=== PATIENT | female | born 1995 | race Hispanic/Latino ===

== ENCOUNTER 2025-01-18 05:55 | Emergency (ER) | payer OTHER, SELFPAY ==
[2025-01-18 05:56] VITALS: BP 123/70; PULSE 87; RESP 19; TEMP 37; O2SAT 100; BMI 21.6
--- NOTE | 2025-01-18 06:15 | EDS_ITS ---
HPI History of Present Illness HPI Narrative: Patient presents with a laceration to her left index finger that occurred today while she was at work. Patient states she cut it on a saw. Patient is right- hand dominant. Patient denies any paresthesias or weakness. Patient states her pain is worse with touching it. Patient states nothing seems to help with her pain. Patient is unsure of her last tetanus. Patient denies any other injuries. Patient was wearing 2 gloves when this occurred. Chief Complaint: Laceration Informant: patient Limited: language barrier (healthcare interpreter iPad was used.) Occured/Mechanism Comment: Cut with miter saw Onset/Context/Timing Onset: Today Context: Sudden Onset Timing: Continuous Location: Left index finger Worsened by: Palpation Relieved by: Nothing Associated Symptoms Associated Symptoms: Negative for Parasthesia or Weakness Narrative Tetanus Immunization: Unknown PFSH PFSH Medical History no medical history no medical history Home Medications ?Medication ?Instructions ?Recorded ?Last Taken ?Type NK 01/18/25 Unknown History Allergy/AdvReac Type Severity Reaction Status Date / Time No Known Allergies Allergy Verified 01/18/25 06:18 Surgical History no surgical history no surgical history Social History Smoking Status: Never smoker ROS ROS ED Constitutional Constitutional ED: Denies chills or fever(s) Eyes Eyes: Denies blurry vision or change in vision ENT ENT ED: Denies rhinorrhea or sore throat Cardiovascular Cardiovascular: Denies chest pain or palpitations Respiratory/Chest Respiratory/Chest: Denies cough or dyspnea Gastrointestinal Gastrointestinal: Denies nausea or vomiting Genitourinary Genitourinary ED: Denies dysuria or hematuria Musculoskeletal Musculoskeletal: Denies back pain or neck pain Integumentary Denies abscess or rash Neurologic Neurologic: Denies headache(s) or weakness Allergic/Immunologic Allergic/Immunologic ED: Denies mouth swelling or urticaria EXAM Physical Exam Const Vital Signs: 01/18/25 05:56 Temperature 98.6 F Temperature Source Oral Pulse Rate 87 Respiratory Rate 19 H Blood Pressure 123/70 H Blood Pressure Mean 87 Pulse Ox 100 Oxygen Delivery Method Room Air Positive well nourished and well developed General Appearance ED: well developed and NAD HEENT Reports moist mucous membranes Neck full ROM Extremity Extremity Narrative: There is a 3 cm full-thickness linear laceration over the base of the proximal phalanx of the left index finger. Patient is able to flex and extend the DIP and PIP joints. There is a deformity of the proximal phalanx of the left index finger. Capillary refill was less than 2 seconds in all digits. Neuro oriented x3, CN's II-XII intact bilaterally, moves all extremities, no focal motor deficits and no sensory deficits noted Sensorium / Orientation: alert Motor Exam: strength 5/5 throughout MDM MDM MDM Narrative Medical decision making narrative: Differential diagnosis includes open fracture, near amputation, and laceration. X-rays of the left index finger will be obtained to assess for fracture and foreign body. Radiography Diagnostic Testing: X-rays of the left index finger were obtained. There are 3 views. On my independent interpretation, there is a comminuted fracture of the proximal phalanx of the left index finger. There is some displacement and rotation. Radiologist also interpreted the x-rays and agrees. Treatment and Re-Evaluation Narrative: Patient was given a tetanus booster. Patient was given a dose of Ancef. Patient was given IV fluids. Case was discussed with Dr. Damon from plastic surgery. He is not on-call and is unable to take the patient to the operating room today for irrigation and repair of the fracture. Case was discussed with Dr. Yang from orthopedics. He does not do hand surgery. Patient was advised of the need for transfer. Case was discussed with Dr. Cole from [facility] hand surgery. He stated that the patient could be transferred to [facility] and the residents there can evaluate the patient. Case was discussed with the transfer line at [facility]. Discharge Plan Triage Chief Complaint: Laceration ED Provider: Farrukh Cortez Dx/Rx/DC Orders Clinical Impression: Open fracture of proximal phalanx of left index finger, Laceration of left index finger Prescriptions: No Action NK Primary Care Provider: Care Physician,No Primary Referrals: Care Physician,No Primary [Primary Care Provider] - Print Language: Hong Konger Disposition Disposition: Acute Care Hospital Discharge Location: [facility]
--- NOTE | 2025-01-18 06:25 | RAD_ITS ---
PROCEDURE: FINGER(S) MIN 2 VIEWS REASON FOR EXAM: 29-year-old female, finger injury. TECHNIQUE: 3 view(s) of the left index finger COMPARISON: None FINDINGS: Acute, mildly displaced and angulated fracture of the left proximal phalanx of the index finger. Moderate surrounding soft tissue edema. No intra-articular extension. Normal alignment. Soft tissues are unremarkable. RAD/Finger(s) Min 2 Views IMPRESSION: Acute left proximal phalanx fracture of the index finger. Reading Location: [id number]
[2025-01-18] MEDS: 0.9% Normal Saline (1000mL) 1,000 ML 1000 ML IV (06:42)
[2025-01-18] MEDS: Morphine 2 MG/ML Syringe IV (06:42)
[2025-01-18] MEDS: Diphth,Pertuss(Acell),Tet Vac 0.5 ML Vial IM (06:43)
[2025-01-18] MEDS: Cefazolin 1 GM/50 ML BAG IV (07:01)
--- NOTE | 2025-01-18 07:20 | ED.RN ---
ACCEPTED AT [facility] AT 0715. ETA FOR PHYSICIANS IS [phone]
[2025-01-18 07:56] VITALS: BP 124/78; PULSE 64; RESP 18; TEMP 37.1; O2SAT 98
[2025-01-18 09:00] VITALS: BP 124/78; PULSE 64; RESP 18; TEMP 37; O2SAT 98
[2025-01-18 09:44] VITALS: BP 121/68; PULSE 98; RESP 18; TEMP 36.9; O2SAT 99
== END 2025-01-18 09:47 | disposition short-term general hospital (02) ==
PROVIDERS: Emergency Provider Emergency Medicine; Visit Provider Emergency Medicine
DX: S62.611B Displaced fracture of proximal phalanx of left index finger, initial encounter for open fracture (principal); W31.2XXA Contact with powered woodworking and forming machines, initial encounter; Z23 Encounter for immunization; Y99.0 Civilian activity done for income or pay; Y92.89 Other specified places as the place of occurrence of the external cause
CPT/HCPCS: 73140; 90715; 96361; 96374; 99285; A4216